=== PATIENT | male | born 1960 | race Caucasian/White ===

== ENCOUNTER → 2017-12-16 13:50 | Outpatient (CLI) | payer OTHER, SELFPAY ==
--- NOTE | 2017-12-16 13:58 | RAD_ITS ---
STUDY: SWALLOWING STUDY REASON FOR EXAM: Male, 57 years old. Dysphasia. TECHNIQUE: The examination was performed with Speech Pathology in attendance. Under fluoroscopic observation, the patient ingested thin barium, thick barium, barium pudding, and barium coated cracker. FLUOROSCOPY TIME: 2:27 minutes/seconds. 2210 fluoroscopic images were obtained. RADIOLOGIST INVOLVEMENT: Radiologist was present and providing direct supervision. COMPARISON: None. FINDINGS: The following was observed during swallowing of the various mixtures of barium: Thin Barium: Penetration with thin liquids. Barium Pudding: There was no evidence of aspiration or laryngeal penetration. Barium Coated Cracker: There was no evidence of aspiration or laryngeal penetration. RAD/Swallowing Function w/Video IMPRESSION: Penetration with thin liquids. The swallow study findings were discussed with the patient by the speech pathologist at the conclusion of the examination. Please see speech pathology report for more information and recommendations. Electronically Signed: Kerwin Draper MD at 12:24 EDT Tel [phone], Service support ,
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
== END ==
PROVIDERS: Family Provider Family Medicine; PCP Family Medicine; Visit Provider Family Medicine
DX: R13.10 Dysphagia, unspecified (principal)
CPT/HCPCS: 74230; 92611

== ENCOUNTER → 2018-01-29 13:15 | Outpatient (CLI) | payer OTHER, SELFPAY ==
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
== END ==
PROVIDERS: Family Provider Family Medicine; PCP Family Medicine; Visit Provider Family Medicine
DX: R13.12 Dysphagia, oropharyngeal phase (principal)
CPT/HCPCS: 74230; 92611

== ENCOUNTER → 2018-04-30 05:00 | Outpatient (REF) | payer OTHER, SELFPAY ==
[2018-04-30 08:07] LABS: Hemoglobin 15.8 g/dl (13.0-16.5); Mean Corp Hgb Conc 32.9 g/gl (32-36); Mean Corpuscular Hgb 32.9 pg (27.0-32.0); Platelet Count 167 K/mm3 (150-450); RBC Distribution Width CV 12.7 % (11.6-14.6); RBC Distribution Width SD 46.1 fl (35.1-43.9); Scan Indicated on CBC? Y/N NO; White Blood Count 7.8 K/mm3 (4.4-11.0)
[2018-04-30 08:29] LABS: AST(SGOT) 55 U/L (15-37); Alanine Aminotransfer ALT/SGPT 73 U/L (16-61); Albumin, Serum 3.3 g/dL (3.2-5.0); Alkaline Phosphatase 92 U/L (45-117); Anion Gap 10 (5-15); BUN 14 mg/dL (7-18); BUN/Creat Ratio 16.2 RATIO (10-20); Bilirubin, Direct 0.16 mg/dL (0.00-0.30); Calcium,Total 8.7 mg/dL (8.5-10.1); Chloride 109 mmol/L (98-107); Cholesterol 88 mg/dL (200); Creatinine, Serum 0.87 mg/dL (0.70-1.30); EST Glomerular Filtration Rate 97 mL/min (>60); Est Glom Filt Rate - Afr Amer 117 mL/min (>60); Globulin 3.6 g/dL (2.2-4.2); Glucose 61 mg/dL (74-106); High Density Lipoprotein 30 mg/dL; Potassium 4.3 mmol/L (3.5-5.1); Protein, Total 6.9 g/dL (6.4-8.2); Sodium Level 145 mmol/L (136-145); Thyroid Stim Hormone (TSH) 2.22 uIU/mL (0.358-3.74); Triglycerides 59 mg/dL; Very Low Density Lipoprotein 12 mg/dL (5-40)
== END ==
LOC: OLS.ACW300 05:00
PROVIDERS: Visit Provider Family Medicine
DX: S06.2X9D Diffuse traumatic brain injury with loss of consciousness of unspecified duration, subsequent encounter (principal); J95.821 Acute postprocedural respiratory failure; R56.9 Unspecified convulsions; M62.81 Muscle weakness (generalized)
CPT/HCPCS: 36415; 80048; 80061; 80076; 82533; 84443; 85027